=== PATIENT | female | born 1970 | race Caucasian/White ===

== ENCOUNTER → 2017-06-10 | Outpatient (CLI) | payer OTHER | END | disposition home or self-care (01) | LOC: CFH 13:09 | PROVIDERS: ATTEND Obstetrics & Gynecology | DX: Z12.31 Encounter for screening mammogram for malignant neoplasm of breast (principal) | CPT/HCPCS: 77067 ==

== ENCOUNTER 2018-08-23 09:16 | Inpatient (IN) | payer OTHER ==
[~2018-08-23] VITALS: Ht 167.6 cm; Wt 88.3 kg
--- NOTE | 2018-08-23 09:39 | NUR ---
INITIAL SYMPTOM CA THURSDAY SHORT IN DURATION. PT THEN AWOKE THURSDAY FEELING TONGUE SWOLLEN, SLURRED SPEECH AND RIGHT HAND WEAKNESS WHERE SHE CANNOT GRASP THINGS. PT INCONTINENT OF URINE THIS MORNING AND NEURO SYMPTOMS CONTINUE
--- NOTE | 2018-08-23 09:54 | NUR ---
NIH STROKE SCALE COMPLETED. NO DEFICITS NOTED BY THIS EXAMINER
[2018-08-23 10:41] LABS: BASOPHILS # (AUTO) 0.07 x10^3/uL (0-0.1); BASOPHILS % (AUTO) 1 % (0-1); EOSINOPHILS # (AUTO) 0.06 x10^3/uL (0-0.4); EOSINOPHILS % (AUTO) 1 % (1-7); LYMPHOCYTES # (AUTO) 2.42 x10^3/uL (1-3.4); LYMPHOCYTES % (AUTO) 33 % (22-44); MD NO; MEAN CORPUSCULAR HEMOGLOBIN 31.1 pg (27.0-34.8); MEAN CORPUSCULAR HGB CONC 34.5 g/dL (32.4-35.8); MEAN CORPUSCULAR VOLUME 90.2 fL (80-100); MEAN PLATELET VOLUME 6.9 fL (7.4-10.4); MONOCYTES # (AUTO) 0.35 x10^3/uL (0.2-0.8); MONOCYTES % (AUTO) 5 % (2-9); NEUTROPHILS # (AUTO) 4.49 x10^3/uL (1.8-6.8); NEUTROPHILS % (AUTO) 61 % (42-75); PLATELET COUNT 270 x10^3/uL (130-400); RED BLOOD COUNT 4.76 x10^6/uL (3.82-5.3); RED CELL DISTRIBUTION WIDTH 12.7 % (9.6-15.2)
[2018-08-23 10:48] LABS: INTERNATIONAL NORMALIZED RATIO 0.95 (0.93-1.1)
--- NOTE | 2018-08-23 10:57 | NUR ---
PT AWARE OF INTENT TO ADMIT. IV ESTABLISHED FOR CT
--- NOTE | 2018-08-23 11:00 | NUR ---
[address] FOR CT WITH CONTRAST PER TECH. PT TO CT FOR CT WITHOUT CONTRAST AND WILL ATTEMPT TO OBTAIN LARGER ACCESS ON RETURN
--- NOTE | 2018-08-23 11:25 | NUR ---
CT AWARE SECOND IV LEFT HAND 20G ESTABLISHED
--- NOTE | 2018-08-23 11:36 | NUR ---
AMBULATED TO BATHROOM WITHOUT ASSISTANCE, STEADY GAIT
--- NOTE | 2018-08-23 11:52 | NUR ---
NEURO AT BEDSIDE
[2018-08-23] MEDS ORDERED: CETI-237 PO (11:53)
[2018-08-23] MEDS ORDERED: LYSI500T PO (11:53)
[2018-08-23] MEDS ORDERED: CHOL2000 PO (11:54)
--- NOTE | 2018-08-23 12:32 | NUR ---
AFTER NEUROLOGIST DONE WITH EXAM, PT TO CT FOR CTA
[2018-08-23] MEDS ORDERED: OMNIPAQUE 350 MG/ML, 100ML BOTTLE ONE (13:08)
--- NOTE | 2018-08-23 13:11 | NUR ---
PT FROM CT TO MRI. REMAINS OFF FLOOR
[2018-08-23] MEDS ORDERED: GADOBUTROL 7.5 MMOL/7.5 ML PFS ONE (13:23)
--- NOTE | 2018-08-23 13:30 | NUR ---
REPORT TO SAMUEL GONZALES RN
--- NOTE | 2018-08-23 13:35 | NUR ---
RETURNED FROM MRI
[2018-08-23 14:24] VITALS: BP 121/81
[2018-08-23] MEDS ORDERED: ONDANSETRON 2MG/ML, 2ML IVPush PRN (15:30)
[2018-08-23] MEDS ORDERED: GUAIFENESIN/COD200MG-20MG/10ML LIQUID PO PRN (15:30)
[2018-08-23] MEDS ORDERED: DOCUSATE 100 MG CAPSULE PO PRN (15:30)
[2018-08-23] MEDS ORDERED: GABAPENTIN 300 MG CAPSULE PO PRN (15:30)
[2018-08-23] MEDS ORDERED: ACETAMINOPHEN 325 MG TABLET PO PRN (15:30)
[2018-08-23 15:49] LABS: BASOPHILS # (AUTO) 0.13 x10^3/uL (0-0.1); BASOPHILS % (AUTO) 2 % (0-1); EOSINOPHILS # (AUTO) 0.08 x10^3/uL (0-0.4); EOSINOPHILS % (AUTO) 1 % (1-7); LYMPHOCYTES # (AUTO) 2.79 x10^3/uL (1-3.4); LYMPHOCYTES % (AUTO) 33 % (22-44); MD NO; MEAN CORPUSCULAR HEMOGLOBIN 30.9 pg (27.0-34.8); MEAN CORPUSCULAR HGB CONC 34.4 g/dL (32.4-35.8); MEAN PLATELET VOLUME 6.7 fL (7.4-10.4); MONOCYTES # (AUTO) 0.48 x10^3/uL (0.2-0.8); MONOCYTES % (AUTO) 6 % (2-9); NEUTROPHILS # (AUTO) 4.88 x10^3/uL (1.8-6.8); NEUTROPHILS % (AUTO) 58 % (42-75); PLATELET COUNT 265 x10^3/uL (130-400); RED BLOOD COUNT 4.77 x10^6/uL (3.82-5.3); RED CELL DISTRIBUTION WIDTH 12.9 % (9.6-15.2)
[2018-08-23] MEDS: CLOPIDOGREL 75 MG TABLET PO SCH (16:17)
[2018-08-23] MEDS: ATORVASTATIN 80 MG TABLET PO SCH (20:29)
[2018-08-23 20:46] VITALS: BP 112/77
[2018-08-24 01:12] VITALS: BP 100/64
[2018-08-24 07:55] VITALS: BP 103/69
[2018-08-24] MEDS: CLOPIDOGREL 75 MG TABLET PO SCH (08:14)
[2018-08-24] MEDS: ASPIRIN 81 MG TABLET CHEW PO/NG SCH (08:14)
[2018-08-24] MEDS: LYSINE 1000 MG PO SCH (08:14)
[2018-08-24] MEDS: CHOLECALCIFEROL 5,000u TAB PO SCH (08:14)
[2018-08-24 08:24] LABS: C-REACTIVE PROTEIN, QUANT 0.26 mg/dL (0.02-0.49); CHOL/HDL RATIO 4.6
[2018-08-24 08:47] LABS: HEMOGLOBIN A1C 5.5 % (4.2-6.3)
[2018-08-24 13:24] VITALS: BP 130/93
[2018-08-24 19:39] VITALS: BP 116/75
[2018-08-24] MEDS: ATORVASTATIN 80 MG TABLET PO SCH (20:35)
[2018-08-25 01:32] VITALS: BP 104/69
[2018-08-25 08:05] VITALS: BP 115/80
[2018-08-25] MEDS: ASPIRIN 81 MG TABLET CHEW PO/NG SCH (08:08)
[2018-08-25] MEDS: CLOPIDOGREL 75 MG TABLET PO SCH (08:08)
[2018-08-25] MEDS: CHOLECALCIFEROL 5,000u TAB PO SCH (08:08)
[2018-08-25] MEDS: LYSINE 1000 MG PO SCH (08:08)
[2018-08-25] MEDS ORDERED: CLOP75TA PO (12:34)
[2018-08-25] MEDS ORDERED: ATOR-2 PO (12:34)
[2018-08-25] MEDS ORDERED: ASPI-515 PO/NG (12:34)
== END 2018-08-25 16:19 | disposition home or self-care (01) | DRG 65 ==
LOC: ED 10:30 → EDIP 12:25 → 4EST 14:10 → DCLOUNGE 08-25 15:45
PROVIDERS: ADMIT Hospitalist; ATTEND Hospitalist
DX: I63.9 Cerebral infarction, unspecified (principal); G81.91 Hemiplegia, unspecified affecting right dominant side; R47.81 Slurred speech; E78.00 Pure hypercholesterolemia, unspecified; E78.5 Hyperlipidemia, unspecified; R47.01 Aphasia; Z87.442 Personal history of urinary calculi; G47.9 Sleep disorder, unspecified
CPT/HCPCS: 36415; 70450; 70496; 70498; 70553; 74230; 80047; 80061; 81241; 83036; 84443; 85025; 85300; 85301; 85303; 85306; 85598; 85610; 85613; 85670; 85730; 85732; 86140; 86146; 86147; 93005; 93306; 99291; A9585; G0378; Q9967; 92523-GN

== ENCOUNTER 2019-04-14 11:21 | Day surgery (SDC) | payer OTHER ==
[~2019-04-14 11:21] MED LIST: ASPI-515 PO/NG; ATOR-2 PO; CETI-237 PO; CHOL2000 PO; CLOP75TA PO; LYSI500T8 PO
[2019-04-14] MEDS ORDERED: LIDOCAINE 1%, 20ML ONE (12:02)
== END 2019-04-14 12:49 | disposition home or self-care (01) ==
LOC: CACL 11:21
PROVIDERS: ATTEND Internal Medicine Cardiovascular Disease
DX: I63.9 Cerebral infarction, unspecified (principal); E78.5 Hyperlipidemia, unspecified; Z79.82 Long term (current) use of aspirin; Z79.899 Other long term (current) drug therapy; Z82.49 Family history of ischemic heart disease and other diseases of the circulatory system
CPT/HCPCS: 33285; C1764; 92960

== ENCOUNTER 2020-07-06 10:35 | Outpatient (CLI) | payer OTHER ==
[~2020-07-06 10:35] MED LIST changes: -ASPI-515 PO/NG; +ASPI-963 PO/NG
== END 2020-07-06 23:59 | disposition home or self-care (01) ==
LOC: CFH 10:35
PROVIDERS: ATTEND Obstetrics & Gynecology
DX: Z12.31 Encounter for screening mammogram for malignant neoplasm of breast (principal); Z12.39 Encounter for other screening for malignant neoplasm of breast
CPT/HCPCS: 76641; 77063; 77067